=== PATIENT | female | born 1990 | race Caucasian/White ===

== ENCOUNTER 2018-02-06 09:40 | Inpatient (IN) ==
[2018-02-06] MEDS ORDERED: Diphenoxylate/Atropine 2.5/0.025 MG Tablet PO PRN (10:58)
[2018-02-06] MEDS ORDERED: LORazepam 1 MG Tablet PO PRN (10:58)
[2018-02-06] MEDS ORDERED: Acetaminophen 325 MG Tablet PO PRN ×2 (10:58→15:30)
[2018-02-06] MEDS ORDERED: Citric Acid/Sodium Citrate Liq 30 ML UDC PO SCH ×2 (11:00→12:30)
--- NOTE | 2018-02-06 11:13 | P.HPOB ---
History of Present Illness Primary Care Physician: No Primary Care Physician Dr. Gastelum Chief Complaint: Decreased movement History of Present Illness: Patient is 27-year-old white female G one P0 at [address] the [facility] clinic and sees Dr. Gastelum and presents with decreased movement. Patient was seen in the office 3 days ago and had a normal visit, she has no complaints of any type of trauma, bleeding, leakage of fluid, abdominal pain. She describes decreased movement over the last day or so. Unfortunately here in OB ED cannot find heart tones and ultrasound confirms baby is a term demise Weeks Gestation:: 38 Para: 0 : 1 Review of Systems All other systems reviewed negative except as stated in HPI PMFSH - Tobacco History Smoking Status: Never smoker - Alcohol History How Often Do You Have a Drink Containing Alcohol: Never - Substance Use History Substance History: No History of Abuse - Travel History History of Recent Travel: No Recent Travel in the [place] Within the Last 8 Weeks: No Recent Travel Out of the Country Within the Last 8 Weeks: No Medications and Allergies Active Medications: Active Medications Acetaminophen (Tylenol) 650 mg PO Q4H PRN PRN Reason: FEVER Citric Acid/Sodium Citrate (Sodium Citrate/Citric Acid Liq) 30 ml PO MAP [facility] Stop: 02/10/18 10:59 Diphenoxylate HCl/Atropine (Lomotil) 1 tab PO Q4H PRN PRN Reason: DIARRHEA Lorazepam (Ativan) 1 mg PO TID PRN PRN Reason: ANXIETY Lorazepam (Ativan Inj) 1 mg IV.PUSH Q8H PRN PRN Reason: ANXIETY Ondansetron HCl (Zofran Inj) 4 mg IV.PUSH Q6H PRN PRN Reason: NAUSEA OR VOMITING Sodium Chloride (Ns Flush) 2 ml IV.FLUSH BID [facility] Sodium Chloride (Ns Flush) 2 ml IV.FLUSH UNSCH PRN PRN Reason: FLUSH AFTER USING IV ACCESS Allergies Allergy/AdvReac Type Severity Reaction Status Date / Time No Known Allergies Allergy Verified 02/06/18 10:13 Exam Vital signs: Vital Signs 02/06/18 10:38 Temperature 99.2 F Pulse Rate 90 Respiratory Rate 18 Blood Pressure 131/82 Intake & Output 02/05/18 02/06/18 02/06/18 18:59 06:59 18:59 Weight 71.178 kg Narrative: GENERAL: Well-nourished, well-developed patient. SKIN: Warm and dry. HEAD: Normocephalic and atraumatic. EYES: No scleral icterus. No injection or drainage. ENT: No nasal drainage noted. Mucous membranes pink. Airway patent. NECK: Supple, trachea midline. No JVD. CARDIOVASCULAR: Regular rate and rhythm without murmurs, gallops, or rubs. RESPIRATORY: Breath sounds equal bilaterally. No accessory muscle use. BREASTS: Bilateral exam showed no masses , no retractions, no nipple discharge. ABDOMEN/GI: Abdomen soft, non-tender, bowel sounds present, no rebound, no guarding Gravid to [38-] weeks size Fundal Height: [38-] GENITOURINARY: External Genitalia: intact and normal in appearance BUS glands: [-] Cervix: [-] Dilatation: [-] Effacement: [-] Station: [-] Presentation: [vtx-] Membranes: [intact ] Uterine Contractions: [-none] FHT's: none EXTREMITIES: No cyanosis or edema. BACK: Nontender without obvious deformity. No CVA tenderness. NEUROLOGICAL: Awake and alert. Motor and sensory grossly within normal limits. Five out of 5 muscle strength in all muscle groups. Normal speech. Results - Imaging Bedside ultrasound shows a single intrauterine vertex presentation with no cardiac activity general anatomy scan within normal limits otherwise normal amniotic fluid volume, normal grade 2 placenta Caprini VTE Risk Assessment Caprini VTE Risk Assessment: No/Low Risk (score <= 1) Caprini Risk Assessment Model: Point Value = 1 Point Value = 2 Point Value = 3 Point Value = 5 Age 41-60 Minor surgery BMI > 25 kg/m2 Swollen legs Varicose veins or History of unexplained or recurrent spontaneous Oral contraceptives or hormone replacement Sepsis (< 1 month) Serious lung disease, including pneumonia (< 1 month) Abnormal pulmonary function Acute myocardial infarction Congestive heart failure (< 1 month) History of inflammatory bowel disease Medical patient at bed rest Age 61-74 Arthroscopic surgery Major open surgery (> 45 min) Laparoscopic surgery (> 45 min) Malignancy Confined to bed (> 72 hours) Immobilizing plaster cast Central venous access Age >= 75 History of VTE Family history of VTE Factor V Leiden Prothrombin [id number] Lupus anticoagulant Anticardiolipin antibodies Elevated serum homocysteine Heparin-induced thrombocytopenia Other congenital or acquired thrombophilia Stroke (< 1 month) Elective arthroplasty Hip, pelvis, or leg fracture Acute spinal cord injury (< 1 month) Prophylaxis Regimen: Total Risk Factor Score Risk Level Prophylaxis Regimen 0-1 Low Early ambulation 2 Moderate Order ONE of the following: *Sequential Compression Device (SCD) *Heparin 5000 units SQ BID 3-4 Higher Order ONE of the following medications: *Heparin 5000 units SQ TID *Enoxaparin/Lovenox 40 mg SQ daily (WT < 150 kg, CrCl > 30 mL/min) *Enoxaparin/Lovenox 30 mg SQ daily (WT < 150 kg, CrCl > 10-29 mL/min) *Enoxaparin/Lovenox 30 mg SQ BID (WT < 150 kg, CrCl > 30 mL/min) AND/OR *Sequential Compression Device (SCD) 5 or more Highest Order ONE of the following medications: *Heparin 5000 units SQ TID (Preferred with Epidurals) *Enoxaparin/Lovenox 40 mg SQ daily (WT < 150 kg, CrCl > 30 mL/min) *Enoxaparin/Lovenox 30 mg SQ daily (WT < 150 kg, CrCl > 10-29 mL/min) *Enoxaparin/Lovenox 30 mg SQ BID (WT < 150 kg, CrCl > 30 mL/min) AND *Sequential Compression Device (SCD) Assessment and Plan - Diagnosis (1) 38 weeks gestation of Code(s): Z3A.38 - 38 weeks gestation of Status: Acute (2) IUFD (intrauterine foetal ) Status: Acute - Plan Plan for this 38-week primipara with demise is admission in the hospital, cervical ripening and induction of labor. Plan to check Kleihauer-Betke, torch titers, DIC lab panel Antibody screen, patient's case discussed with her public transportation inspector Dr. Gastelum will assume care
[2018-02-06] MEDS ORDERED: ceFAZolin 2 GM Premix Inj 2 GM/50 ML PIGGYBACK IV.SIG PRN (12:22)
--- NOTE | 2018-02-06 12:36 | P.OBGPN ---
Immediately came to hospital when notified by Dr. Washington regarding demise. When at bedside with patient and her "Felix" they are understandably visibly in shock and devastated by the news. OB Diagnostics confirmed diagnosis of demise on imaging, official report not yet available but on digital hardware design engineer's read, normal weight, normal amniotic fluid, normal placenta, vertex . Gave patient, her , and her parents time to consider options and patient decides she would like elective , she does not feel she can deal with a possible prolonged induction or the trauma of pushing out a demised infant. Not yet sure about post-delivery wishes, reviewed everything in detail as far as memory box, holding baby, pentecostal, assembler radio and electrical services, option of autopsy, and need for services. all questions answered. Preop orders placed, all staff notified, consents signed. Currently another patient is having a so will proceed with Kathleen's surgery once OR and staff available.
[2018-02-06 13:24] LABS: Amphetamine Screen,Urine Neg (Neg); Barbiturate Screen,Urine Neg (Neg); Cannabinoid Screen,Urine Neg (Neg); Cocaine Screen,Urine Neg (Neg)
[2018-02-06 13:26] LABS: Bacteria,Urine Occasional /hpf; Bilirubin,Urine Negative (Negative); Clarity,Urine Clear (Clear); Color,Urine Straw (Yellw/Straw); Glucose,Urine (UA) 150 mg/dL (Negative); Leukocyte Esterase,Urine Small (Negative); Nitrite,Urine Negative (Negative); Specific Gravity,Urine 1.004 (1.002-1.035); Squamous Epithelial Cell,Urine 1 /hpf (0-5)
[2018-02-06 13:27] LABS: Opiate Screen,Urine Neg (Neg)
[2018-02-06 13:35] LABS: Baso % (Auto) 0.2 % (0.0-2.0); Eos # (Auto) 0.1 th/mm3 (0.0-0.4); Eos % (Auto) 0.6 % (0.0-4.0); Hematocrit 39.3 % (35.0-46.0); Hemoglobin 13.5 gm/dL (11.6-15.3); Lymph # (Auto) 1.2 th/mm3 (1.0-4.8); Lymph % (Auto) 8.9 % (9.0-44.0); Mean Corpuscular HGB Conc 34.2 % (32.0-36.0); Mean Corpuscular Hemoglobin 32.8 pg (27.0-34.0); Mean Platelet Volume 7.9 fL (7.0-11.0); Mono # (Auto) 0.5 th/mm3 (0.0-0.9); Mono % (Auto) 3.7 % (0.0-8.0); Neut # (Auto) 11.6 th/mm3 (1.8-7.7); Neut % (Auto) 86.6 % (16.0-70.0); Platelet Count 280 th/mm3 (150-450); Red Cell Distribution Width 13.7 % (11.6-17.2); White Blood Count 13.4 th/mm3 (4.0-11.0)
[2018-02-06 13:48] LABS: Activated Partial Thrombo Time 28.9 sec (23.4-31.7)
[2018-02-06] MEDS ORDERED: Morphine Sulfate PF Inj 5 MG/10 ML Ampul ONE (14:16)
[2018-02-06] MEDS ORDERED: Senna/Docusate Sodium 8.6/50 MG Tablet PO PRN (15:30)
[2018-02-06] MEDS ORDERED: Simethicone 80 MG Chew Tablet PO PRN (15:30)
[2018-02-06] MEDS ORDERED: Oxytocin 30 Units/500ml Premix 30 UNITS/500 ML BAG IV.SIG ONE (15:30)
--- NOTE | 2018-02-06 15:40 | P.OBDELI ---
Procedure Note - Pre Op Diagnosis (1) IUFD (intrauterine foetal ) (2) 38 weeks gestation of - Post Op Diagnosis (1) Status post primary low transverse section (2) 38 weeks gestation of (3) IUFD (intrauterine foetal ) Performed by: Nena Gastelum MD Procedure: Primary Low Transverse Section Indication for Delivery: Other (IUFD, severe maternal distress, maternal choice , unable to tolerate thought of laboring demised ) Informed Consent Obtained: For anesthesia, For procedure Confirmed Correct: Patient, Procedure, Site, Time-out taken Anesthesia: Spinal Medication Prior to Procedure: As documented in eMAR Monitoring During Procedure: Blood pressure monitoring, groundwater monitoring technician, Pulse oximetry Urinary Catheter: Inserted using sterile technique, To dependent drainage Sterile Preparation: Duraprep, In usual fashion, With drapes to expose affected area Position: Supine with wedge to right side - Operative Features Skin Incision: Pfannenstiel Uterine Incision: Low transverse w/knife / blunt ext Membranes Ruptured: Artificially, Amount of liquid (moderate), Appearance of fluid (clear) Presentation: Vertex Status of Infant: Umbilical cord (tight nuchal x2, clamped & cut to allow for delivery) Placenta Delivered: Intact, Sent to pathology, Other (culture performed although no sign of infection) Medications: Antibiotics (Ancef 2g IV preop) Estimated blood loss (mL): 700 Procedure Tolerated: Well Maternal Condition: Stable Baby Complications: Other (known IUFD at time of ) Procedure in Detail: see dictated op note for full details - Infant: Female (born at 1451p)
[2018-02-06] MEDS ORDERED: fentaNYL Citrate Inj 100 MCG/2 ML Ampul ONE (15:44)
[2018-02-06] MEDS ORDERED: Oxytocin 30 Units/500ml Premix 30 UNITS/500 ML BAG ONE (16:58)
[2018-02-06] MEDS ORDERED: Naloxone Inj 0.4 MG/ML Vial IV.PUSH PRN (18:26)
--- NOTE | 2018-02-06 19:27 | MP ---
cc: Nena Gastelum MD DATE OF OPERATION: 02/06/2018 PREOPERATIVE DIAGNOSES: 1. Intrauterine demise at 38 weeks and 4 days. 2. Severe maternal distress, declined induction for vaginal delivery, elected for primary . POSTOPERATIVE DIAGNOSES: 1. Intrauterine demise at 38 weeks and 4 days. 2. Severe maternal distress, declined induction for vaginal delivery, elected for primary . 3. Postoperative day number zero. INDICATIONS: Kathleen Miranda is a 27-year-old healthy female 1, now para 1-0-0-0 who was a transfer to my office for care around 29 weeks. She had had adequate care prior to that time and continued to have adequate care. She was seen on an every other week basis initially and then weekly starting at 36 weeks with normal blood pressures, normal fundal height, good movement and normal cardiac activity at all visits, the most recent being on 02/03/2018. The patient called the office in the afternoon of 02/05/2018 reporting decreased movement. She was counseled to come to the hospital for monitoring. The patient ended up coming in on 02/06/2018 and on triage physician evaluation, there were no heart tones able to be found with standard monitoring. Bedside ultrasound was performed and no cardiac activity was found. Hospitalist Dr. Washington called me and I immediately came from my office to the hospital to evaluate patient. Official ultrasound confirmed demise. The patient was in extreme emotional distress. Options were discussed with her including induction for labor and vaginal , as well as option for a primary with all the risks that went along with that. The patient after much consideration desired a primary . PROCEDURE PERFORMED: Primary low transverse delivery. SURGEON: Nena Gastelum MD TYPE OF ANESTHESIA: Spinal. ESTIMATED BLOOD LOSS: 700 mL. IV FLUID AND URINE OUTPUT: Please see anesthesia record. COMPLICATIONS: None. COUNTS: Sponge, lap, instrument and needle correct x2 at the conclusion of the procedure. PROPHYLAXIS: Ancef 2 grams IV was given preoperatively and SCDs were on and functioning throughout the entire case. INTRAOPERATIVE FINDINGS: Clear amniotic fluid. A vertex female infant weighing 5 pounds 11 ounces with extremely tight nuchal cord x2 that had to be clamped and cut in order to deliver the . Placenta appeared intact. There were no knots in the cord. There was no sign of abruption. There was no sign of infection. Placental culture was taken. Bilateral tubes and ovaries appeared normal. SPECIMEN: Placenta and placental cultures. PROCEDURE IN DETAIL: After reviewing the informed consent, the patient was taken to the operating suite, where timeout was performed to identify the patient, the planned procedure, and any known allergies to drugs or drug products. The patient was placed sitting up on the exam table and spinal anesthesia was administered without difficulty and found to be adequate. The patient was then laid in dorsal supine position with a bump to her right side. Abdomen and perineum were prepped and draped in normal sterile fashion. The Ibanez catheter was placed using sterile technique. A Pfannenstiel-type skin incision was then made with the scalpel, carried down to the underlying layer of fascia with the Bovie. Incision was extended laterally with sharp dissection using Arreola scissors. Superior and inferior aspects of the fascial incision were then elevated with Lloyd clamps and rectus muscles were dissected off sharply. Rectus muscles were then in the midline. Peritoneum was identified and entered bluntly. Incision was extended bluntly. Bladder blade was placed. A bladder flap was not made. A low transverse uterine incision was made with a scalpel. This was extended bluntly. Clear amniotic fluid was encountered. Infant's head was grasped and elevated out through the incision. Immediately an extremely tight nuchal cord x2 was noted. This was doubly clamped and cut to allow successful delivery of the infant. was then handed off to the awaiting nursery staff for evaluation. A cord blood sample was attempted, but the sample clotted. The placenta delivered spontaneously with gentle cord traction and fundal massage. Uterus was exteriorized and cleared of all clots and debris with sterile moist lap sponges. The hysterotomy was repaired in a double-layer, first in a running locked layer, then in an imbricating layer with #1 chromic. Posterior cul-de-sac was irrigated copiously with warm sterile saline and the uterus was returned to the abdomen. Additionally irrigation with suction was performed. Excellent hemostasis was noted at the repaired hysterotomy. A layer of Interceed was placed to act as an adhesion barrier. The peritoneum was then closed in a running layer of 2-0 chromic. Fascia was closed in a running layer of #1 Vicryl. Subcutaneous tissue was irrigated with warm sterile saline, and hemostasis was ensured with the Bovie. A series of interrupted sutures using 2-0 chromic was used to close the subcutaneous tissue and using 3-0 Monocryl, the skin was closed in a subcuticular fashion. Skin was cleaned and dried and Steri-Strips were placed as was a standard dressing. Procedure concluded at this point. The patient tolerated the procedure well. She was brought to the PACU in stable condition where she and her are grieving together. They did choose to hold their daughter who they had named "Bre." DISPOSITION: The patient's estimated length of stay is 1-2 postoperative days. MD RIGO Canas/shavon , 06:12 PM , 06:23 PM CARMEN
[2018-02-06] MEDS ORDERED: Oxytocin 30 Units/500ml Premix 30 UNITS/500 ML BAG IV.SIG PRN (20:30)
[2018-02-06] MEDS ORDERED: Zolpidem Tartrate 5 MG Tablet PO PRN (21:00)
[2018-02-07 06:13] LABS: Baso % (Auto) 0.2 % (0.0-2.0); Eos # (Auto) 0.1 th/mm3 (0.0-0.4); Eos % (Auto) 0.7 % (0.0-4.0); Hematocrit 30.4 % (35.0-46.0); Hemoglobin 10.6 gm/dL (11.6-15.3); Lymph # (Auto) 2.9 th/mm3 (1.0-4.8); Mean Corpuscular HGB Conc 34.9 % (32.0-36.0); Mean Corpuscular Hemoglobin 32.9 pg (27.0-34.0); Mean Corpuscular Volume 94.3 fL (80.0-100.0); Mean Platelet Volume 8.1 fL (7.0-11.0); Mono % (Auto) 6.9 % (0.0-8.0); Neut # (Auto) 11.1 th/mm3 (1.8-7.7); Neut % (Auto) 73.2 % (16.0-70.0); Platelet Count 249 th/mm3 (150-450); Red Blood Count 3.22 mil/mm3 (4.00-5.30); Red Cell Distribution Width 13.5 % (11.6-17.2); White Blood Count 15.1 th/mm3 (4.0-11.0)
--- NOTE | 2018-02-07 09:22 | P.PNOB ---
Subjective Post op day: 1 Interval history: s/p primary LTCD for maternal distress, unable to deal with diagnosis of IUFD, refusal of induction of labor; infant girl "Ashley" 38w, cord accident, tight nuchal x 2 diagnosed at delivery Objective Vital Signs/I&O: Vital Signs 02/06/18 10:38 02/06/18 10:45 02/06/18 13:32 Temperature 99.2 F 98.8 F Pulse Rate 90 98 H 97 H Respiratory Rate 18 16 Blood Pressure 131/82 124/72 02/06/18 15:29 02/06/18 15:30 02/06/18 15:35 Temperature 98.1 F Pulse Rate 103 H 85 Respiratory Rate 16 16 Blood Pressure 113/55 L 111/54 L 02/06/18 15:48 02/06/18 16:04 02/06/18 16:16 Temperature Pulse Rate 86 80 80 Respiratory Rate 16 18 18 Blood Pressure 111/58 L 110/56 L 106/64 02/06/18 16:31 02/06/18 16:35 02/06/18 16:47 Temperature 98.4 F Pulse Rate 78 80 Respiratory Rate 16 16 Blood Pressure 105/62 113/78 02/06/18 17:20 02/06/18 19:40 02/06/18 23:33 Temperature 99.4 F 98.7 F Pulse Rate 86 93 H Respiratory Rate 16 18 15 Blood Pressure 122/65 103/70 02/06/18 23:34 02/07/18 01:38 02/07/18 01:42 Temperature 98.5 F Pulse Rate 83 85 Respiratory Rate 18 Blood Pressure 121/68 126/69 02/07/18 04:56 Temperature 98.2 F Pulse Rate 83 Respiratory Rate 16 Blood Pressure 95/62 L Intake & Output 02/06/18 02/07/18 02/07/18 18:59 06:59 18:59 Weight 70.307 kg Other: Weight On Admission 70.307 kg Result Diagrams: 02/07/18 05:52 Objective Remarks: GENERAL: Well-nourished, well-developed patient. resting in bed CARDIOVASCULAR: Regular rate and rhythm without murmurs, gallops, or rubs. RESPIRATORY: Breath sounds equal bilaterally. No accessory muscle use. ABDOMEN/GI: Abdomen soft, non-tender, bowel sounds present. Incision: bandage in place; Clean, dry and intact. Fundus: Firm, non-tender at umbilicus. GENITOURINARY: Light bleeding. EXTREMITIES: No cyanosis or edema, non-tender, without signs of DVT. Medications and IVs: Active Medications Acetaminophen (Tylenol) 650 mg PO Q4H PRN PRN Reason: FEVER Acetaminophen (Tylenol) 650 mg PO Q6H PRN PRN Reason: PAIN SCALE 1 TO 2 Citric Acid/Sodium Citrate (Sodium Citrate/Citric Acid Liq) 30 ml PO [employer] [facility] Stop: 02/10/18 12:29 Diphenhydramine HCl (Benadryl Inj) 25 mg IV.PUSH Q6H PRN PRN Reason: MILD TO MODERATE ITCHING Stop: 02/07/18 18:25 Diphenhydramine HCl (Benadryl) 50 mg PO Q6H PRN PRN Reason: MILD TO MODERATE ITCHING Stop: 02/07/18 18:25 Diphenoxylate HCl/Atropine (Lomotil) 1 tab PO Q4H PRN PRN Reason: DIARRHEA Diphtheria/Pertussis/Tetanus Vacc (Boostrix Vaccine Inj) 0.5 ml IM .ONCE ONE Stop: 02/07/18 16:01 Lactated Ringer's (Lr 1000 Ml Inj) 1,000 mls @ 100 mls/hr IV.CONT .Q10H [facility] Stop: 02/07/18 16:29 Oxytocin (Pitocin 30 Units/Ns 500 Ml Premix) 30 units in 500 mls @ 100 mls/hr IV.SIG UNSCH PRN PRN Reason: Heavy bleeding Ibuprofen (Motrin) 800 mg PO Q8H PRN PRN Reason: cramping Last Admin: 02/06/18 21:41 Dose: 800 mg Ketorolac Tromethamine (Toradol Inj) 30 mg IM Q6H PRN PRN Reason: SEE LABEL COMMENTS Stop: 02/11/18 15:29 Lorazepam (Ativan) 1 mg PO TID PRN PRN Reason: ANXIETY Lorazepam (Ativan Inj) 1 mg IV.PUSH Q8H PRN PRN Reason: ANXIETY Measles/Mumps/Rubella Vaccine Live (M-M-R Ii Vaccine Inj) 0.5 ml SQ .ONCE ONE Stop: 02/07/18 16:01 Miscellaneous Information ([facility] Nursing Information) 1 each OTHER UNSCH PRN PRN Reason: SEE LABEL COMMENTS Stop: 02/07/18 18:25 Miscellaneous Information ([facility] Nursing Information) 1 each OTHER UNSCH PRN PRN Reason: SEE LABEL COMMENTS Stop: 02/07/18 18:25 Naloxone HCl (Narcan Inj) 0.4 mg IV.PUSH UNSCH PRN PRN Reason: SEE LABEL COMMENTS Stop: 02/07/18 18:25 Ondansetron HCl (Zofran Inj) 4 mg IV.PUSH Q6H PRN PRN Reason: NAUSEA OR VOMITING Last Admin: 02/06/18 18:50 Dose: 4 mg Oxycodone/Acetaminophen (Percocet 5/325 Mg) 1 tab PO Q4H PRN PRN Reason: PAIN SCALE 3 TO 5 Last Admin: 02/06/18 23:40 Dose: 1 tab Oxycodone/Acetaminophen (Percocet 5/325 Mg) 2 tab PO Q4H PRN PRN Reason: PAIN SCALE 6 TO 10 Last Admin: 02/07/18 03:17 Dose: 2 tab Senna/Docusate Sodium (Amy-Colace) 2 tab PO Q12H PRN PRN Reason: CONSTIPATION Simethicone (Mylicon Chew) 80 mg PO QID PRN PRN Reason: FLATULENCE Sodium Chloride (Ns Flush) 2 ml IV.FLUSH BID [facility] Last Admin: 02/06/18 21:57 Dose: Not Given Sodium Chloride (Ns Flush) 2 ml IV.FLUSH PRN PRN PRN Reason: FLUSH AFTER USING IV ACCESS Zolpidem Tartrate (Ambien) 5 mg PO HS PRN PRN Reason: INSOMNIA Assessment and Plan - Diagnosis (1) 38 weeks gestation of Code(s): Z3A.38 - 38 weeks gestation of Status: Acute (2) IUFD (intrauterine foetal ) Status: Acute (3) Status post primary low transverse section Code(s): Z98.891 - History of uterine scar from previous surgery Status: Acute - Plan POD#1 s/p primary LTCD for IUFD at 38 wks and maternal choice of delivery mode. - extensive counseling with patient and yesterday and today; family present and involved in care/support plan - s/p vacuum repairer consult, given information on [employer] - encouraged to stay today at least for 24-30h after to ensure pain well controlled prior to discharge - will be following closely weekly in office for mood checks and postop care - not yet meeting discharge criteria, possibly later this evening on admission ordered ac Christian titers, DIC lab panel Discharge Planning: possibly later today
[2018-02-07] MEDS ORDERED: Diphtheria/Tetanus/Pertussis Vaccine Inj 0.5 ML Syringe IM ONE (16:00)
[2018-02-07] MEDS ORDERED: Measles/Mumps/Rubella Vaccine Inj 0.5 ML Vial SQ ONE (16:00)
[2018-02-08 19:53] LABS: Rubella IgG 1.46 INDEX (Immune)
== END 2018-02-07 20:42 | disposition home or self-care (01) ==
LOC: HOBED 09:40 → H2E 11:00
PROVIDERS: ADMIT Obstetrics & Gynecology; ATTEND Obstetrics & Gynecology